=== PATIENT | male | born 1985 | race Caucasian/White ===

== ENCOUNTER 2017-05-28 18:05 | Emergency (ER) | payer MEDICAID ==
[2017-05-28 18:25] VITALS: BP 127/79
[2017-05-28] MEDS ORDERED: cephALEXin 250 MG CAPSULE PO STA (19:16)
--- NOTE | 2017-05-28 19:19 | ED Physician Documentation ---
PD HPI SKIN - Stated complaint Stated Complaint: BUMPS BEHIND EARS - Chief complaint Chief Complaint: Wound - History obtained from History obtained from: Patient - History of Present Illness Timing - onset: Other (He has cystic acne and has inflamed cysts behind both ears which he would like drained. No fevers.) Review of Systems Constitutional: reports: Reviewed and negative Eyes: reports: Reviewed and negative Nose: reports: Reviewed and negative PD PAST MEDICAL HISTORY - Past Medical History Past Medical History: No - Past Surgical History Past Surgical History: Yes - Present Medications Home Medications: Ambulatory Orders Medication Instructions Recorded Confirmed Cephalexin [Keflex] 500 mg PO QID #40 capsule 05/28/17 - Allergies Allergies/Adverse Reactions: Allergies Allergy/AdvReac Type Severity Reaction Status Date / Time Penicillins Allergy Severe Hives Verified 05/28/17 18:12 amoxicillin Allergy Unknown Verified 05/28/17 18:12 - Social History Does the pt smoke?: Yes Smoking Status: Current every day smoker Does the pt drink ETOH?: No Does the pt have substance abuse?: Yes Substance Use and Type: Marijuana - Immunizations Immunizations are current?: Yes Immunizations: TDAP >10years/unknown - POLST Patient has POLST: No PD ED PE NORMAL - Vitals Vital signs reviewed: Yes - General General: Alert and oriented X 3, No acute distress - HEENT HEENT: Other (There is a large infected sebaceous cyst behind the right ear and a smaller one behind the left ear) - Neck Neck: Supple, no meningeal sign, No bony TTP - Neuro Neuro: Alert and oriented X 3, Normal speech - Psych Psych: Normal mood, Normal affect Results - Vitals Vitals: Vital Signs - 24 hr 05/28/17 05/28/17 18:11 18:23 Temperature 36.6 C 36.8 C Heart Rate 86 85 Respiratory 15 24 Rate Blood Pressure 130/89 H 127/79 O2 Saturation 99 98 Oxygen O2 Source Room air Procedures - Abscess I&D (location) Left ear Preparation: Alcohol, Lidocaine 1% Incision: Incised with scalpel, Purulent drainage Other: Pt tolerated well, Dressing applied, Antibiotic prescribed Right Ear Preparation: Alcohol, Lidocaine 1% Incision: Incised with scalpel, Purulent drainage Other: Pt tolerated well, Dressing applied Departure - Departure Disposition: 01 Home, Self Care Clinical Impression: Sebaceous cyst of ear Condition: Good Record reviewed to determine appropriate education?: Yes Instructions: ED Abscess IandD Prescriptions: Cephalexin [Keflex] 500 mg PO QID #40 capsule Comments: Call your doctor to arrange a follow-up appointment, make the next available appointment. In the interim, return anytime if worse or if new symptoms develop.
[2017-05-28] MEDS ORDERED: cephALEXin 250 MG CAPSULE PO ONE (19:27)
== END 2017-05-28 19:24 | disposition home or self-care (01) ==
LOC: ED 18:05
DX: L72.3 Sebaceous cyst (principal)
CPT/HCPCS: 10060; 99283; A9270

== ENCOUNTER 2017-09-02 20:54 | Emergency (ER) | payer MEDICAID ==
[2017-09-02 21:03] VITALS: BP 131/72
[2017-09-02] MEDS ORDERED: PROPARACAINE 0.5% OPHTH DROPS 15 ML RIGHTEYE STA (21:05)
[2017-09-02] MEDS ORDERED: ERYTHROMYCIN OPHTH OINT 1 GM TUBE RIGHTEYE STA (21:11)
[2017-09-02] MEDS ORDERED: HYDROcod/ACET 5/325 Prepack 6 PO STA (21:11)
[2017-09-02] MEDS ORDERED: TETANUS/DIPHTHERIA/PERTUSSIS 0.5 ML SYRINGE IM ONE (21:11)
--- NOTE | 2017-09-02 21:16 | ED Physician Documentation ---
PD HPI OPHTHO - Stated complaint Stated Complaint: R EYE INJ - Chief complaint Chief Complaint: Heent - History obtained from History obtained from: Patient - History of Present Illness Timing - onset: Today (Working at home with bushes and scratched himself to the right eye, visual acuity is unaffected. He does not wear contacts.) Review of Systems Constitutional: denies: Fever, Chills Eyes: reports: Discharge, Irritation. denies: Loss of vision, Decreased vision , Photophobia Ears: denies: Loss of hearing, Ear pain PD PAST MEDICAL HISTORY - Past Surgical History Past Surgical History: Yes - Present Medications Home Medications: Ambulatory Orders Medication Instructions Recorded Confirmed No Known Home Medications [No 09/02/17 09/02/17 Known Home Medications] - Allergies Allergies/Adverse Reactions: Allergies Allergy/AdvReac Type Severity Reaction Status Date / Time Penicillins Allergy Severe Hives Verified 09/02/17 21:03 amoxicillin Allergy Unknown Verified 09/02/17 21:03 - Social History Does the pt smoke?: Yes Smoking Status: Current every day smoker Does the pt drink ETOH?: No Does the pt have substance abuse?: Yes - Immunizations Immunizations are current?: Yes Immunizations: TDAP >10years/unknown - POLST Patient has POLST: No PD ED PE NORMAL - Vitals Vital signs reviewed: Yes - General General: Alert and oriented X 3, No acute distress - HEENT HEENT: PERRL, EOMI, Other (On fluorescein examination there is a large shallow abrasion of the right cornea, inferolateral. Negative Steven sign.) - Neck Neck: Supple, no meningeal sign, No bony TTP - Neuro Neuro: Alert and oriented X 3, Normal speech - Psych Psych: Normal mood, Normal affect Results - Vitals Vitals: Vital Signs - 24 hr 09/02/17 21:01 Temperature 36.7 C Heart Rate 77 Respiratory 20 Rate Blood Pressure 131/72 H O2 Saturation 99 Oxygen O2 Source Room air Departure - Departure Disposition: Home, Self Care Clinical Impression: Corneal abrasion, right Qualifiers: Encounter type: initial encounter Qualified Code(s): S05.01XA - Injury of conjunctiva and corneal abrasion without foreign body, right eye, initial encounter Condition: Good Record reviewed to determine appropriate education?: Yes Instructions: ED Eye Injury Corneal Abrasion Follow-Up: Mario Mehta MD [Provider Admit Priv/Credential] - Within 3 Days Comments: Use the eye drops 5 times a day Your blood pressure was elevated today on check into the emergency department. This does not mean that you have hypertension, it is a common phenomenon to come to the emergency department and have elevated blood pressure. I recommend that you see your primary care physician within the week to have it rechecked when you are feeling better.
== END 2017-09-02 21:22 | disposition home or self-care (01) ==
LOC: ED 20:54
DX: S05.01XA Injury of conjunctiva and corneal abrasion without foreign body, right eye, initial encounter (principal); W22.8XXA Striking against or struck by other objects, initial encounter; Y93.H2 Activity, gardening and landscaping; Y92.009 Unspecified place in unspecified non-institutional (private) residence as the place of occurrence of the external cause; R03.0 Elevated blood-pressure reading, without diagnosis of hypertension; F17.200 Nicotine dependence, unspecified, uncomplicated; Z23 Encounter for immunization
CPT/HCPCS: 90471; 90715; 99283; J3490

== ENCOUNTER 2019-02-24 17:54 | Emergency (ER) | payer MEDICAID, OTHER ==
[2019-02-24] MEDS ORDERED: IBUPROFEN 600 MG TABLET PO STA (18:36)
[2019-02-24] MEDS ORDERED: BUPIVACAINE 0.25%-EPI 1:200000 PF 10 ML VIAL SUBQ ONE (18:42)
[2019-02-24] MEDS ORDERED: CLINDAMYCIN 150 MG CAPSULE PO STA (18:43)
[2019-02-24] MEDS ORDERED: BUPIVACAINE 0.25%-EPI 1:200000 PF 30 ML VIAL SUBQ STA (18:46)
[2019-02-24] MEDS ORDERED: BUPIVACAINE 0.25%-EPI 1:200000 PF 30 ML VIAL SUBQ ONE (19:00)
--- NOTE | 2019-02-24 19:16 | ED Physician Documentation ---
PD HPI HEENT - Stated complaint Stated Complaint: TOOTH PX - Chief complaint Chief Complaint: Heent - History obtained from History obtained from: Patient - History of Present Illness Timing - onset: Chronic, Other (worse 2 days ago) Timing - details: Gradual onset, Still present Severity Comments: severe Location: Tooth (right tooth #27) Improves: Nothing Worsens: Everything Associated symptoms: Facial swelling (right lower face and chin swelling that is moderate). No: Fever, Rhinorrhea, Trismus Similar symptoms before: Other (has severe dental decay that is diffuse) - Treatment prior to arrival Treatment prior to arrival: ibuprofen - Additional information Additional information: Hx of methamphetamine abuse previously Review of Systems Ten Systems: 10 systems reviewed and negative Constitutional: denies: Fever, Chills Throat: reports: Dental pain / toothache. denies: Sore throat GI: denies: Nausea, Vomiting Skin: reports: Other (swelling of Right lower face/chin) Neurologic: reports: Reviewed and negative Immunocompromised: reports: Reviewed and negative PD PAST MEDICAL HISTORY - Past Medical History Past Medical History: No Other Past Medical History: denies - Past Surgical History Past Surgical History: Yes - Present Medications Home Medications: Ambulatory Orders Medication Instructions Recorded Confirmed Ibuprofen [Motrin] 800 mg PO Q8H PRN #30 tablet 02/24/19 RX: Chlorhexidine Gluconate 15 ml MM TID 10 Days #1 mouthwash 02/24/19 RX: Clindamycin HCl [Clindamycin 300 mg PO Q6H #28 capsule 02/24/19 300MG CAP] - Allergies Allergies/Adverse Reactions: Allergies Allergy/AdvReac Type Severity Reaction Status Date / Time Penicillins Allergy Severe Hives Verified 09/02/17 21:03 amoxicillin Allergy Unknown Verified 09/02/17 21:03 - Social History Does the pt smoke?: Yes Smoking Status: Current every day smoker Does the pt drink ETOH?: No Does the pt have substance abuse?: Yes Substance Use and Type: Meth - Immunizations Immunizations are current?: No Immunizations: TDAP >10years/unknown - POLST Patient has POLST: No PD ED PE NORMAL - Vitals Vital signs reviewed: Yes - General General: Alert and oriented X 3, No acute distress, Well developed/nourished - HEENT HEENT: Atraumatic - Neck Neck: Supple, no meningeal sign, No JVD - Cardiac Cardiac: RRR - Respiratory Respiratory: No respiratory distress - Abdomen Abdomen: Non distended - Male Male : Deferred - Rectal Rectal: Deferred - Derm Derm: Warm and dry - Neuro Neuro: Alert and oriented X 3 Eye Opening: Spontaneous Motor: Obeys Commands Verbal: Oriented GCS Score: 15 - Psych Psych: Normal mood, Normal affect PD ED PE EXPANDED - HEENT HEENT: Pharynx normal, Dental decay, Dental TTP, Dental abscess (tooth #27 with surrounding swelling of gum line. Not including the submental area but including the chin on the right side with some redness.) - Derm Derm: Other (redness of R side of lower face and chin on side of dental abscess, not fluctuant.) Results - Vitals Vitals: Vital Signs - 24 hr 02/24/19 02/24/19 18:15 19:28 Temperature 37.4 C Heart Rate 86 66 Respiratory 16 16 Rate Blood Pressure 146/89 H 154/94 H O2 Saturation 100 99 Oxygen O2 Source Room air Procedures - Abscess I&D (location) Other right Preparation: Marcaine 0.25%, With epi (R mental block with 6cc of bupivcaine.) Incision: Incised with scalpel, Purulent drainage, Loculations broken Other: Pt tolerated well, Antibiotic prescribed PD MEDICAL DECISION MAKING - ED course Complexity details: re-evaluated patient, considered differential, d/w patient ED course: ddx - dental pain, dental abscess, ludwigs angina, facial cellulitis, pericoronitis 33 y/o M with dental pain for a few days but long hx of dental decay likely due to prior methamphetamine abuse. Pt without fever but has obvious tooth #27 decay with surrounding abscess and facial swelling. No drooling, no trismus. He does not have symptoms of Amari's angina. An I&D was performed succesffully. The pt had some post I&D bleeding which resolved with gauze packing. The pt was started on antibiotics - clindamycin as well as chlorahexidine mouth wash. He is to f/u with a dentist as soon as he can get an appt. Departure - Departure Disposition: 01 Home, Self Care Clinical Impression: Dental abscess Condition: Stable Record reviewed to determine appropriate education?: Yes Follow-Up: your, dentist [Other] - Within 1 week Prescriptions: RX: Chlorhexidine Gluconate 15 ml MM TID 10 Days #1 mouthwash RX: Clindamycin HCl [Clindamycin 300MG CAP] 300 mg PO Q6H #28 capsule Ibuprofen [Motrin] 800 mg PO Q8H PRN #30 tablet PRN Reason: PAIN &/OR FEVER Comments: Return to the ED if you develop any difficulty speaking, drooling, shortness of breath or fever. Discharge Date/Time: 02/24/19 19:28
[2019-02-24 19:34] VITALS: BP 154/94
== END 2019-02-24 19:28 | disposition home or self-care (01) ==
LOC: ED 17:54
DX: K04.7 Periapical abscess without sinus (principal); K02.9 Dental caries, unspecified; F17.200 Nicotine dependence, unspecified, uncomplicated
CPT/HCPCS: 41800; 99282; 99284; A9270

== ENCOUNTER 2019-03-02 07:57 | Emergency (ER) | payer OTHER ==
--- NOTE | 2019-03-02 08:11 | ED Physician Documentation ---
PD HPI CHEST PAIN - Stated complaint Stated Complaint: CHEST PX - Chief complaint Chief Complaint: Cardiac - History obtained from History obtained from: Patient - History of Present Illness Timing - onset: Yesterday Timing - onset during: Rest Timing - duration: Days (1) Timing - details: Gradual onset, Still present Quality: Sharp, Pain Location: Substernal, Right chest Radiation: Back Improved by: Nothing Associated symptoms: Cough. No: Shortness of air, Diaphoresis, Nausea, Vomiting, Feeling faint / dizzy, General Weakness, Palpitations Similar symptoms before: Has not had sx before Recently seen: Other - Additional information Additional information: 33-year-old male who has recently had a dental extraction for abscess tooth is on some clindamycin and ibuprofen. He has developed some acute right-sided chest pain and a burning sensation in his chest. This began last night and is persisted through the night. He is come to the emergency department today for evaluation. He has not had this symptoms previously Review of Systems Constitutional: denies: Fever Eyes: denies: Decreased vision Ears: denies: Loss of hearing Nose: denies: Rhinorrhea / runny nose, Congestion Throat: reports: Dental pain / toothache Cardiac: reports: Chest pain / pressure. denies: Palpitations, Pedal edema, Calf pain Respiratory: reports: Cough. denies: Dyspnea, Wheezing GI: denies: Abdominal Pain, Nausea, Vomiting : denies: Dysuria, Frequency PD PAST MEDICAL HISTORY - Past Surgical History Past Surgical History: Yes - Present Medications Home Medications: Ambulatory Orders Medication Instructions Recorded Confirmed Clindamycin HCl [Clindamycin 300MG 300 mg PO Q6H #28 capsule 02/24/19 03/02/19 CAP] Ibuprofen [Motrin] 800 mg PO Q8H PRN #30 tablet 02/24/19 03/02/19 Sucralfate [Carafate] 1 gm PO ACHS #60 tablet 03/02/19 - Allergies Allergies/Adverse Reactions: Allergies Allergy/AdvReac Type Severity Reaction Status Date / Time Penicillins Allergy Severe Hives Verified 03/02/19 08:07 amoxicillin Allergy Unknown Verified 03/02/19 08:07 - Social History Does the pt smoke?: Yes Smoking Status: Current every day smoker Does the pt drink ETOH?: No Does the pt have substance abuse?: Yes - Immunizations Immunizations are current?: No Immunizations: TDAP >10years/unknown - POLST Patient has POLST: No PD ED PE NORMAL - Vitals Vital signs reviewed: Yes (hypertensive mild ) - General General: Alert and oriented X 3, No acute distress, Well developed/nourished - HEENT HEENT: Atraumatic, PERRL, EOMI - Neck Neck: Supple, no meningeal sign, No bony TTP - Cardiac Cardiac: RRR, No murmur - Respiratory Respiratory: No respiratory distress, Clear bilaterally - Abdomen Abdomen: Normal bowel sounds, Soft, Non tender, Non distended, No organomegaly - Back Back: No CVA TTP, No spinal TTP - Derm Derm: Normal color, Warm and dry, No rash - Extremities Extremities: No deformity, No edema - Neuro Neuro: Alert and oriented X 3, physician compensation analyst 2-12 intact, No motor deficit, No sensory deficit, Normal speech Eye Opening: Spontaneous Motor: Obeys Commands Verbal: Oriented GCS Score: 15 - Psych Psych: Normal mood, Normal affect Results - Vitals Vitals: Vital Signs - 24 hr 03/02/19 03/02/19 08:05 09:15 Temperature 36.8 C 36.8 C Heart Rate 75 60 Respiratory 16 14 Rate Blood Pressure 141/91 H 142/94 H O2 Saturation 100 100 Oxygen O2 Source Room air - EKG (time done) 0801 Rate: Rate (enter#) Rhythm: NSR Ischemia: ST elevation c/w repol Compare to prior EKG: Old EKG unavailable Computer interpretation: Agree with computer - Labs Labs: Laboratory Tests 03/02/19 03/02/19 03/02/19 08:45 08:45 08:45 WBC 8.5 RBC 4.67 L Hgb 14.3 Hct 42.5 MCV 91.0 MCH 30.6 MCHC 33.6 RDW 13.5 Plt Count 306 MPV 10.5 Neut # (Auto) 5.8 Lymph # (Auto) 1.9 [place] # (Auto) 0.5 Eos # (Auto) 0.2 Baso # (Auto) 0.1 Absolute Nucleated RBC 0.00 Nucleated RBC % 0.0 Sodium 139 Potassium 4.3 Chloride 104 Carbon Dioxide 27 Anion Gap 8.0 BUN 12 Creatinine 0.6 Estimated GFR (MDRD) 155 Glucose 94 Calcium 8.8 Total Bilirubin 0.5 AST 18 ALT 19 Alkaline Phosphatase 40 L Troponin I < 0.04 Total Protein 6.7 Albumin 3.2 Globulin 3.5 Albumin/Globulin Ratio 0.9 L Lipase 43 - Rads (name of study) 1 view chest Radiology: Prelim report reviewed (Impression: 1. Possible mild airways disease such as RAD or viral syndrome. No consolidation. 2 Normal heart size.), EMP read indepedently, See rad report PD MEDICAL DECISION MAKING - ED course Complexity details: reviewed old records, reviewed results, re-evaluated patient, considered differential, d/w patient ED course: 33-year-old male has been taking some ibuprofen for bad teeth and he has developed chest pain of a burning nature in the central portion of his chest. He has improvement with this with the use of a GI cocktail consisting of viscous lidocaine and Mylanta. I suspect his chest pain is related and we will place the patient on some Carafate as well as Pepcid. I discussed these findings with the patient he will stop taking the ibuprofen and take Carafate and Pepcid for the next week. Departure - Departure Disposition: 01 Home, Self Care Clinical Impression: Gastritis Qualifiers: Gastritis type: unspecified gastritis Chronicity: acute Gastritis bleeding: without bleeding Qualified Code(s): K29.00 - Acute gastritis without bleeding Condition: Stable Instructions: ED PUD Vs Gastritis Follow-Up: [facility] [Provider Group] Prescriptions: Sucralfate [Carafate] 1 gm PO ACHS #60 tablet Comments: Today it appears the pain you are having in your chest is related to the use of ibuprofen. Stop the ibuprofen and take some Pepcid AC or omeprazole available [id number] and take the Carafate as prescribed. Forms: Activity restrictions
--- NOTE | 2019-03-02 08:49 | XRAY Report ---
Reason: cp Procedure Date: 03/02/2019 Accession Number: [id number] / [id number] Procedure: XR - Chest 1 View X-Ray CPT Code: 39156 FULL RESULT: EXAM: CHEST RADIOGRAPHY EXAM DATE: 03/02/2019 08:30 AM. CLINICAL HISTORY: Chest tightness x2 days. COMPARISON: None. TECHNIQUE: 1 view. FINDINGS: Lungs/Pleura: Mild bilateral bronchial wall thickening. No consolidation or vascular congestion. A probable 4 cm right apical bleb. No pneumothorax or pleural effusion. Mediastinum: Normal cardiomediastinal silhouette. Other: No acute fracture evident. IMPRESSION: 1. Possible mild airways disease such as RAD or viral syndrome. No consolidation. 2. Normal heart size. RADIA
[2019-03-02 08:53] LABS: BASOPHILS # (AUTO) 0.1 10^3/uL (0.0-0.1); BASOPHILS % (AUTO) 0.7 %; EOSINOPHILS # (AUTO) 0.2 10^3/uL (0.0-0.7); EOSINOPHILS % (AUTO) 2.4 %; HGB - HEMOGLOBIN 14.3 g/dL (14.0-18.0); LYMPHOCYTES # (AUTO) 1.9 10^3/uL (1.5-3.5); LYMPHOCYTES % (AUTO) 21.9 %; MEAN CORPUSCULAR HEMOGLOBIN 30.6 pg (27.0-31.0); MEAN CORPUSCULAR HGB CONC 33.6 g/dL (32.0-36.0); MEAN PLATELET VOLUME 10.5 fL (7.4-11.4); MONOCYTES # (AUTO) 0.5 10^3/uL (0.0-1.0); MONOCYTES % (AUTO) 6.3 %; NEUTROPHILS # (AUTO) 5.8 10^3/uL (1.5-6.6); NEUTROPHILS % (AUTO) 68.1 %; PLT - PLATELET COUNT 306 10^3/uL (130-450); RED BLOOD COUNT 4.67 10^6/uL (4.70-6.10); RED CELL DISTRIBUTION WIDTH 13.5 % (12.0-15.0); WHITE BLOOD COUNT 8.5 x10^3/uL (4.8-10.8)
[2019-03-02 09:05] LABS: ALBUMIN 3.2 g/dL (3.2-5.5); ALBUMIN/GLOBULIN RATIO 0.9 (1.0-2.2); BILIRUBIN,TOTAL 0.5 mg/dL (0.2-1.0); CALCIUM 8.8 mg/dL (8.5-10.3); CREATININE 0.6 mg/dL (0.6-1.2); TOTAL PROTEIN 6.7 g/dL (6.7-8.2)
[2019-03-02] MEDS ORDERED: LIDOCAINE VISCOUS 2% 15 ML UDC MM STA (09:43)
[2019-03-02] MEDS ORDERED: MAG HYDROX/AL HYDROX/SIMETH 30 ML UDC PO STA (09:43)
[2019-03-02] MEDS ORDERED: SUCRALFATE 1 GM/10 ML UDC PO STA (10:20)
[2019-03-02] MEDS ORDERED: FAMOTIDINE 20 MG TABLET PO STA (10:20)
[2019-03-02 10:31] VITALS: BP 126/64
== END 2019-03-02 10:30 | disposition home or self-care (01) ==
LOC: ED 07:57
DX: K29.00 Acute gastritis without bleeding (principal); Z98.818 Other dental procedure status; F17.200 Nicotine dependence, unspecified, uncomplicated
CPT/HCPCS: 36415; 71045; 80053; 83690; 84484; 85025; 93005; 99284; A9270

== ENCOUNTER 2019-04-28 04:10 | Emergency (ER) | payer OTHER ==
[2019-04-28 04:19] VITALS: BP 146/92
--- NOTE | 2019-04-28 04:27 | ED Physician Documentation ---
PD HPI HEENT - Stated complaint Stated Complaint: FACE SWELLING/PAIN - Chief complaint Chief Complaint: Heent - History obtained from History obtained from: Patient - History of Present Illness Timing - onset: How many days ago (1-2) Timing - duration: Days (1-2) Timing - details: Gradual onset, Still present Location: Tooth Worsens: Everything Associated symptoms: Swollen nodes, Facial swelling. No: Fever, Congestion, Unable to swallow Similar symptoms before: Diagnosis (has had dental infections, last one February 2019 and had tooth extracted after treatment from ER.) Review of Systems Constitutional: reports: Chills. denies: Fever Nose: denies: Rhinorrhea / runny nose, Congestion Throat: denies: Sore throat Respiratory: denies: Cough GI: denies: Nausea, Vomiting PD PAST MEDICAL HISTORY - Past Medical History Past Medical History: No - Past Surgical History Past Surgical History: Yes - Present Medications Home Medications: Ambulatory Orders Medication Instructions Recorded Confirmed Clindamycin HCl [Clindamycin 300MG 300 mg PO Q6H #28 capsule 02/24/19 03/02/19 CAP] Ibuprofen [Motrin] 800 mg PO Q8H PRN #30 tablet 02/24/19 03/02/19 Sucralfate [Carafate] 1 gm PO ACHS #60 tablet 03/02/19 Chlorhexidine Gluconate [Peridex] 5 ml MM BID #118 ml 04/28/19 Clindamycin HCl [Clindamycin 300MG 300 mg PO Q6H #28 capsule 04/28/19 CAP] Oxycodone HCl/Acetaminophen 1 each PO Q6H PRN #18 tablet 04/28/19 [Percocet 5-325 mg Tablet] - Allergies Allergies/Adverse Reactions: Allergies Allergy/AdvReac Type Severity Reaction Status Date / Time Penicillins Allergy Severe Hives Verified 03/02/19 08:07 amoxicillin Allergy Unknown Verified 03/02/19 08:07 - Social History Does the pt smoke?: Yes Smoking Status: Current every day smoker Does the pt drink ETOH?: No Does the pt have substance abuse?: Yes - Immunizations Immunizations are current?: No Immunizations: TDAP >10years/unknown - POLST Patient has POLST: No PD ED PE NORMAL - Vitals Vital signs reviewed: Yes - General General: Alert and oriented X 3, Well developed/nourished, Other (He appears uncomfortable and is holding the left mandible) - HEENT HEENT: No: Dentition benign (Significant dental caries. The left incisor shows significant decay with some swelling and tenderness along the gum. There is no fluctuance noted. The molars on both lower sides have been previously extracted. There is some mild left anterior adenopathy in the submandibular area.) - Neck Neck: Supple, no meningeal sign - Cardiac Cardiac: RRR, No murmur - Respiratory Respiratory: Clear bilaterally - Derm Derm: Normal color, Warm and dry - Neuro Neuro: Alert and oriented X 3, No motor deficit, Normal speech Results - Vitals Vitals: Vital Signs - 24 hr 04/28/19 04:16 Temperature 36.8 C Heart Rate 73 Respiratory 17 Rate Blood Pressure 146/92 H O2 Saturation 98 Oxygen O2 Source Room air PD MEDICAL DECISION MAKING - ED course Complexity details: reviewed old records, considered differential (Dental infection without fluctuant abscess. We will treat with antibiotics and pain medicine.), d/w patient Departure - Departure Disposition: 01 Home, Self Care Clinical Impression: Infected dental caries Condition: Stable Record reviewed to determine appropriate education?: Yes Instructions: ED Abscess Tooth Prescriptions: Chlorhexidine Gluconate [Peridex] 5 ml MM BID #118 ml Clindamycin HCl [Clindamycin 300MG CAP] 300 mg PO Q6H #28 capsule Oxycodone HCl/Acetaminophen [Percocet 5-325 mg Tablet] 1 each PO Q6H PRN #18 tablet PRN Reason: pain Comments: Stay well-hydrated. Use anti-inflammatories such as ibuprofen or naproxen 2-3 times a day. To that add Tylenol or Percocet if needed for pain. Chlorhexidine antiseptic mouth rinse twice daily 5 mL at a time swish it around the affected area and spit it out. Clindamycin antibiotic as directed for a week. Follow-up with dentist at their earliest available appointment for more definitive care of the tooth. Recheck if not improving well over the next couple of days.
[2019-04-28] MEDS ORDERED: CLINDAMYCIN 150 MG CAPSULE PO STA (04:32)
[2019-04-28] MEDS ORDERED: oxyCODONE/ACET 5/325 Prepack 4 PO STA (04:32)
[2019-04-28] MEDS ORDERED: ACETAMINOPHEN 325 MG TABLET PO STA (04:32)
== END 2019-04-28 04:49 | disposition home or self-care (01) ==
LOC: ED 04:10
DX: K04.7 Periapical abscess without sinus (principal); K02.9 Dental caries, unspecified; F17.200 Nicotine dependence, unspecified, uncomplicated
CPT/HCPCS: 99283; 99284; A9270

== ENCOUNTER 2020-05-07 10:35 | Emergency (ER) | payer OTHER ==
--- NOTE | 2020-05-07 11:39 | ED Physician Documentation ---
PD HPI OPHTHO - Stated complaint Stated Complaint: R EYE PX/REDNESS - Chief complaint Chief Complaint: Heent - History obtained from History obtained from: Patient - History of Present Illness Timing - onset: Yesterday Timing - duration: Days (1) Timing - details: Gradual onset (no noted abrupt FB nor symptoms. He was out doing a lot of yard work and weed wacking/brush clearing, and later in day noted onset of irritation, redness, swelling right eye. No FB feeling per se, but eye generally irritated.), Still present Location: Right. No: Both Quality / character: Itching, Burning Associated symptoms: Redness, Swelling, Tearing, Photophobia (mild), Decreased vision. No: Discharge, FB sensation, Loss of vision, Headache Contributing factors: Work related. No: Recent URI, FB (but feels he likely is reacting to something from the yard clearing he did yesterday.), Wears contacts Similar symptoms before: Has not had sx before Review of Systems Constitutional: denies: Fever Nose: reports: Rhinorrhea / runny nose (from allergies). denies: Congestion Throat: denies: Sore throat Respiratory: denies: Dyspnea, Cough Skin: denies: Rash PD PAST MEDICAL HISTORY - Past Medical History Past Medical History: No - Past Surgical History Past Surgical History: Yes - Present Medications Home Medications: Ambulatory Orders Medication Instructions Recorded Confirmed Clindamycin HCl [Clindamycin 300MG 300 mg PO Q6H #28 capsule 02/24/19 03/02/19 CAP] Ibuprofen [Motrin] 800 mg PO Q8H PRN #30 tablet 02/24/19 03/02/19 Sucralfate [Carafate] 1 gm PO ACHS #60 tablet 03/02/19 Chlorhexidine Gluconate [Peridex] 5 ml MM BID #118 ml 04/28/19 Clindamycin HCl [Clindamycin 300MG 300 mg PO Q6H #28 capsule 04/28/19 CAP] Oxycodone HCl/Acetaminophen 1 each PO Q6H PRN #18 tablet 04/28/19 [Percocet 5-325 mg Tablet] Ketotifen Fumarate 2 drops RIGHTEYE TID #1 bottle 05/07/20 Lazarus/Polymyx B Sulf/Dexameth 2 - 3 drops RIGHTEYE QID #1 bottle 05/07/20 [Hbbbff-Ylnjb-Rlwdfajc Eye Drop] - Allergies Allergies/Adverse Reactions: Allergies Allergy/AdvReac Type Severity Reaction Status Date / Time Penicillins Allergy Severe Hives Verified 05/07/20 10:52 amoxicillin Allergy Unknown Verified 05/07/20 10:52 - Social History Does the pt smoke?: Yes Smoking Status: Current every day smoker Does the pt drink ETOH?: No Does the pt have substance abuse?: Yes - Immunizations Immunizations are current?: No Immunizations: TDAP >10years/unknown - POLST Patient has POLST: No PD ED PE NORMAL - Vitals Vital signs reviewed: Yes - General General: Alert and oriented X 3, Well developed/nourished - HEENT HEENT: PERRL, EOMI PD ED PE EXPANDED - Eyes Eyes: Right eye, Injected conj/sclera (redness and hyperemia, with lower conjunctival swelling/edema), Anterior chambers clear, Normal fundi, Other (no light sensitivity here). No: Eyelid swelling, Exudate, Corneal abrasion, Fluorescein uptake Results - Vitals Vitals: Vital Signs - 24 hr 05/07/20 05/07/20 10:50 12:20 Temperature 36.6 C 36.3 C L Heart Rate 65 72 Respiratory 16 15 Rate Blood Pressure 149/85 H 138/84 H O2 Saturation 98 99 Oxygen O2 Source Room air Departure - Departure Disposition: 01 Home, Self Care Clinical Impression: Conjunctivitis Qualifiers: Conjunctivitis type: acute Acute conjunctivitis type: atopic Laterality: right Qualified Code(s): H10.11 - Acute atopic conjunctivitis, right eye Condition: Stable Record reviewed to determine appropriate education?: Yes Instructions: ED Conjunctivitis Nonspecific Prescriptions: Ketotifen Fumarate 2 drops RIGHTEYE TID #1 bottle Lazarus/Polymyx B Sulf/Dexameth [Xsossg-Jpcxq-Vymdynqz Eye Drop] 2 - 3 drops RIGHTEYE QID #1 bottle Comments: Both eyedrops in the right eye 3-4 times a day for the next several days until this is improved. It is hard to tell whether it is entirely inflammatory/allergic versus some infectious. We will treat for both. Recheck if not improved well over the next several days. Discharge Date/Time: 05/07/20 12:23
[2020-05-07 12:23] VITALS: BP 138/84
== END 2020-05-07 12:23 | disposition home or self-care (01) ==
LOC: ED 10:35
DX: H10.11 Acute atopic conjunctivitis, right eye (principal); F17.200 Nicotine dependence, unspecified, uncomplicated
CPT/HCPCS: 99282; 99283

== ENCOUNTER 2021-09-12 17:25 | Outpatient (CLI) | payer OTHER ==
--- NOTE | 2021-09-13 10:41 | XRAY Report ---
PROCEDURE: Chest 2 View X-Ray INDICATIONS: CHEST PX TECHNIQUE: 2 view(s) of the chest. COMPARISON: Chest x-ray 03/12/2021 FINDINGS: Surgical changes and devices: None. Lungs and pleura: No pleural effusions or pneumothorax. Lungs are clear. Mediastinum: Mediastinal contours are normal. Heart size is normal. Bones and chest wall: No suspicious bony abnormalities. Soft tissues appear unremarkable. IMPRESSION: No acute pulmonary process. Reviewed by: Nena Levy MD on 09/13/2021 10:40 AM [facility] Approved by: Nena Levy MD on 09/13/2021 10:40 AM [facility] Station ID: [id number]
== END 2021-09-12 23:59 | disposition home or self-care (01) ==
LOC: DI.N 17:25
PROVIDERS: ATTEND Nurse Practitioner
DX: R07.9 Chest pain, unspecified (principal)

== ENCOUNTER 2022-09-01 09:20 | Outpatient (CLI) | payer MEDICAID ==
[2022-09-01 18:28] LABS: BASOPHILS # (AUTO) 0.1 10^3/uL (0.0-0.1); BASOPHILS % (AUTO) 1.1 %; EOSINOPHILS # (AUTO) 0.3 10^3/uL (0.0-0.7); EOSINOPHILS % (AUTO) 4.7 %; HCT - HEMATOCRIT 43.8 % (42.0-52.0); HGB - HEMOGLOBIN 13.9 g/dL (14.0-18.0); LYMPHOCYTES # (AUTO) 1.9 10^3/uL (1.5-3.5); LYMPHOCYTES % (AUTO) 35.4 %; MEAN CORPUSCULAR HGB CONC 31.7 g/dL (32.0-36.0); MEAN CORPUSCULAR VOLUME 88.3 fL (80.0-94.0); MEAN PLATELET VOLUME 11.4 fL (7.4-11.4); MONOCYTES # (AUTO) 0.5 10^3/uL (0.0-1.0); MONOCYTES % (AUTO) 8.9 %; NEUTROPHILS # (AUTO) 2.7 10^3/uL (1.5-6.6); NEUTROPHILS % (AUTO) 49.7 %; PLT - PLATELET COUNT 333 10^3/uL (130-450); RED BLOOD COUNT 4.96 10^6/uL (4.70-6.10); RED CELL DISTRIBUTION WIDTH 13.3 % (12.0-15.0); WHITE BLOOD COUNT 5.5 x10^3/uL (4.8-10.8)
[2022-09-01 18:46] LABS: ALBUMIN 3.3 g/dL (3.2-5.5); ALBUMIN/GLOBULIN RATIO 0.9 (1.0-2.2); ALKALINE PHOSPHATASE 43 IU/L (42-121); ALT ALANINE AMINOTRANSFERASE 21 IU/L (10-60); AST ASPARTATE AMINOTRANSFERASE 20 IU/L (10-42); BILIRUBIN,TOTAL 1.5 mg/dL (0.2-1.0); BUN - BLOOD UREA NITROGEN 14 mg/dL (6-20); CALCIUM 8.9 mg/dL (8.5-10.3); CARBON DIOXIDE - CO2 31 mmol/L (21-32); CHLORIDE 102 mmol/L (101-111); CHOLESTEROL 212 mg/dL; CREATININE 0.7 mg/dL (0.6-1.2); GFR - MDRD 128 (>89); GLUCOSE 94 mg/dL (70-100); HDL CHOLESTEROL 70 mg/dL; LDL CHOLESTEROL,CALCULATED 132 mg/dL; LDL/HDL RATIO 1.9 (<3.6); POTASSIUM 4.6 mmol/L (3.5-5.0); SODIUM 138 mmol/L (135-145); TOTAL PROTEIN 6.9 g/dL (6.7-8.2); TRIGLYCERIDES 51 mg/dL; VLDL CHOLESTEROL 10 mg/dL
== END 2022-09-01 09:21 | disposition home or self-care (01) ==
LOC: LAB.N 09:20
PROVIDERS: ATTEND Nurse Practitioner
DX: R53.83 Other fatigue (principal); Z13.220 Encounter for screening for lipoid disorders
CPT/HCPCS: 36415; 80053; 80061; 83721; 85025

== ENCOUNTER 2022-10-30 09:24 | Day surgery (SDC) | payer MEDICAID ==
[2022-10-30] MEDS ORDERED: LACTATED RINGERS 1,000 ML IV ONE ×2 (09:26→11:38)
--- NOTE | 2022-10-30 10:57 | ANESTHESIA ---
Pre-Anesthesia VS, & Labs - Diagnosis rectal bleeding, hemorrhoids - Procedure colonoscopy, hemorrhoid banding Vital Signs: Temp Pulse Resp BP Pulse Ox O2 Flow Rate 36.6 C 57 L 16 132/76 H 100 0 10/30/22 09:38 10/30/22 09:38 10/30/22 09:38 10/30/22 09:38 10/30/22 09:38 10/30/22 09:38 Height: 6 ft Weight (kg): 80 kg Body Mass Index: 23.9 BMI Classification: Normal - NPO >8 hours Home Medications and Allergies Home Medications: Ambulatory Orders No Known Home Medications 10/29/22 No Known Home Medications 10/29/22 Allergies/Adverse Reactions: Allergies Allergy/AdvReac Type Severity Reaction Status Date / Time Penicillins Allergy Severe Hives Verified 10/29/22 13:06 amoxicillin Allergy Unknown Verified 10/29/22 13:06 Anes History & Medical History - Anesthetic History Anesthesia Complications: reports: No previous complications - Medical History Cardiovascular: reports: None Pulmonary: reports: None Gastrointestinal: reports: Hemorrhoids Urinary: reports: None Neuro: reports: None Musculoskeletal: reports: Chronic back pain Endocrine/Autoimmune: reports: None Blood Disorders: reports: None Skin: reports: None Smoking Status: Former smoker (quit 2.5 years ago) Psychosocial: reports: Cannabis (daily use) History of Cancer?: No - Surgical History General: reports: Other (pyloroplasty and hernia repair) Exam General: Alert, Oriented x3, Cooperative, No acute distress Dental: Other (edentulous) Mouth Openin Fingerbreadth Neck Mobility: Normal Mallampati classification: I Thyromental Distance: 4-6 cm Mental/Cognitive Status: Alert/Oriented X3, Normal for patient Plan Anesthesia Type: General, Total IV Consent for Procedure(s) Verified and Reviewed: Yes Code Status: Attempt Resuscitation ASA classification: 2-Mild systemic disease Is this case an emergency?: No
[2022-10-30] MEDS ORDERED: MIDAZOLAM 2 MG/2 ML VIAL ONE (11:09)
[2022-10-30] MEDS ORDERED: PROPOFOL 500 MG/50 ML 500 MG/50 ML VIAL ONE (11:10)
[2022-10-30] MEDS ORDERED: GLYCOPYRROLATE 1 MG/5 ML VIAL ONE (11:19)
--- NOTE | 2022-10-30 12:01 | ANESTHESIA POST OP EVALUATION ---
Anesthesia Post Eval - Post Anesthesia Eval Vitals: Last Vital Signs Temp 36.0 C L 10/30/22 11:40 Pulse 81 10/30/22 11:40 Resp 16 10/30/22 11:40 BP 127/88 H 10/30/22 11:40 Pulse Ox 99 10/30/22 11:40 O2 Flow Rate 0 10/30/22 09:38 CV Function Including HR & BP: Stable Pain Control: Satisfactory Nausea & Vomiting: Negative Mental Status: Baseline Respiratory Status: Airway Patent Hydration Status: Satisfactory Anesthesia Complications: None
[2022-10-30 12:52] VITALS: BP 143/94
== END 2022-10-30 09:25 | disposition home or self-care (01) ==
LOC: SDS 09:24
PROVIDERS: ATTEND Surgery
DX: K62.5 Hemorrhage of anus and rectum (principal); K64.8 Other hemorrhoids; Z87.891 Personal history of nicotine dependence
CPT/HCPCS: 45378; 46221; J7120

== ENCOUNTER 2022-12-03 17:11 | Emergency (ER) | payer MEDICAID ==
[2022-12-03 17:19] VITALS: BP 133/76
--- NOTE | 2022-12-03 17:27 | ED Physician Documentation ---
PD HPI BACK PAIN - Stated complaint Stated Complaint: BACK PAIN - Chief complaint Chief Complaint: Back Pain - History obtained from History obtained from: Patient - Additional information Additional information: He has chronic back pain. Has been in physical therapy was helpful. 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 Pain is much worse with bending or twisting. There was no fall or specific injury otherwise. He denies weakness, numbness, tingling, saddle anesthesia, fevers, IV drug use, bowel or bladder incontinence. He tried ibuprofen and Flexeril at home which were not effective. PD PAST MEDICAL HISTORY - Past Medical History Past Medical History: Yes Cardiovascular: None Respiratory: None Neuro: None Endocrine/Autoimmune: None GI: Hemorrhoids : None HEENT: None Psych: Bipolar disorder Musculoskeletal: Chronic back pain Derm: None - Past Surgical History Past Surgical History: Yes - Present Medications Home Medications: Ambulatory Orders Medication Instructions Recorded Confirmed HYDROcod/ACETAM 5/325 [Jackson 5/325] 1 - 2 tab PO Q6H PRN #15 tablet 12/03/22 - Allergies Allergies/Adverse Reactions: Allergies Allergy/AdvReac Type Severity Reaction Status Date / Time Penicillins Allergy Severe Hives Verified 12/03/22 17:16 amoxicillin Allergy Unknown Verified 12/03/22 17:16 - Social History Does the pt smoke?: No Smoking Status: Former smoker Does the pt drink ETOH?: No Does the pt have substance abuse?: Yes Substance Use and Type: Marijuana - Immunizations Immunizations are current?: Yes Immunizations: TDAP >10years/unknown - POLST Patient has POLST: No PD ED PE NORMAL - Vitals Vital signs reviewed: Yes - General General: Alert and oriented X 3, Other (Winces with motion but comfortable at rest) - Abdomen Abdomen: Non tender - Back Back: No spinal TTP - Extremities Extremities: Other (The patient has equal and normal Achilles and patellar reflexes bilaterally. Normal sensation in all areas of the legs. Patient denies saddle anesthesia. Normal strength in flexion-extension at the ankles, knees, and flexion of the hips.) - Neuro Neuro: Alert and oriented X 3, Normal speech Results - Vitals Vitals: Vital Signs - 24 hr 12/03/22 17:16 Temperature 37.2 C Heart Rate 83 Respiratory 16 Rate Blood Pressure 133/76 H O2 Saturation 99 Oxygen O2 Source Room air PD Medical Decision Making - ED course ED course: This patient has seemingly uncomplicated musculoskeletal back pain. The patient has no "red flags." Specifically denies IV drug use, fevers, incontinence, saddle anesthesia. Spinal epidural abscess was considered, given that the patient has no fever, is not diabetic, has no spinal tenderness, does not use IV drugs, and has no bilateral neurologic symptoms, the diagnosis of spinal epidural abscess is considered exceedingly unlikely. Departure - Departure Disposition: 01 Home, Self Care Clinical Impression: Back pain Qualifiers: Back pain location: low back pain Chronicity: chronic Back pain laterality: bilateral Sciatica presence: without sciatica Qualified Code(s): M54.50 - Low back pain, unspecified Condition: Good Record reviewed to determine appropriate education?: Yes Instructions: ED Low Back Pain Injury Prescriptions: HYDROcod/ACETAM 5/325 [Jackson 5/325] 1 - 2 tab PO Q6H PRN #15 tablet PRN Reason: Pain Comments: I sent your prescriptions electronically to [facility] in [place]. Call your doctor to arrange a follow-up appointment, make the next available appointment. In the interim, return anytime if worse or if new symptoms develop. You can continue taking ibuprofen along with the medication I am prescribing you. I am prescribing a short course of narcotic pain medication for you. These are potentially dangerous and addictive medications that should be used carefully. These medications may constipate you. Take an bhvk-qgf-bmflxyq stool softener (docusate) twice daily with plenty of water while taking these medications. If you go 24 hours without a bowel movement, take nlqb-[id number] miralax, per package instructions. Do not drink or drive while taking these medications. If you received narcotic or sedating medications while in the emergency department, do not drive for 24 hours. Store this medication in a safe, secure place and out of reach of children. It is a violation of federal law to give or sell this medication to another person or to use in a manner other than prescribed. The ED will not refill narcotic prescriptions, including prescriptions lost or stolen. To dispose of unwanted medications: 1. [facility] at [address] in [place] has a medication drop box. They accept prescription medications (in pill form) Saturday through Saturday 9:00 a.m. to 5:00 p.m. 2. The [facility] accepts prescription medications (in pill form only) for disposal year round. Call for more information. 3. Contact the [facility] for the next [facility] sponsored prescription drug collection event. , [phone], or [phone]; Note that many narcotic pain relievers also contain Tylenol/acetaminophen. Please ensure that your total dose of acetaminophen from all sources does not exceed 3 g (3000 mg) per day. Forms: Activity restrictions
== END 2022-12-03 17:35 | disposition home or self-care (01) ==
LOC: ED 17:11
DX: M54.50 Low back pain, unspecified (principal)
CPT/HCPCS: 99282; 99283

== ENCOUNTER 2022-12-05 09:41 | Outpatient (CLI) | payer MEDICAID ==
--- NOTE | 2022-12-05 11:10 | XRAY Report ---
PROCEDURE: Lumbar Spine 2 View INDICATIONS: LOW BACK PAIN, CHRONIC TECHNIQUE: 2 views of the lumbar spine were acquired. COMPARISON: None. FINDINGS: Bones: 5 ytk-cim-zlzrygf vertebrae are present. Unremarkable alignment. No vertebral body compressi on fractures. Lumbar disc heights appear maintained. Soft tissues: Overlying bowel gas pattern is normal. No suspicious soft tissue calcifications. IMPRESSION: No vertebral body fracture visualized. No substantial degenerative changes visualized radiographicall y. If symptoms persist, follow-up radiographs and/or CT or MRI may be helpful for further evaluation. Reviewed by: Pedro Gonzalez MD on 12/05/2022 11:08 AM PDT Approved by: Pedro Gonzalez MD on 12/05/2022 11:08 AM PDT Station ID: [id number]
== END 2022-12-05 09:42 | disposition home or self-care (01) ==
LOC: DI 09:41
PROVIDERS: ATTEND Physician Assistant Medical
DX: M54.59 Other low back pain (principal)

== ENCOUNTER 2023-01-08 19:03 | Emergency (ER) | payer MEDICAID ==
[2023-01-08] MEDS ORDERED: PROPARACAINE 0.5% OPHTH DROPS 15 ML EACHEYE STA (19:24)
[2023-01-08] MEDS ORDERED: ERYTHROMYCIN OPHTH OINT 1 GM TUBE LEFTEYE STA (20:10)
--- NOTE | 2023-01-08 20:14 | ED Physician Documentation ---
PD HPI OPHTHO - Stated complaint Stated Complaint: EYE INJURY - Chief complaint Chief Complaint: Heent - History obtained from History obtained from: Patient - History of Present Illness Location: Left Quality / character: Aching, Sharp Associated symptoms: Redness, Tearing, Photophobia. No: Swelling, Discharge, Matting, FB sensation, Double vision, Decreased vision, Loss of vision, Headache Contributing factors: Blunt trauma - Additional information Additional information: 37-year-old male presents with left eye irritation after getting struck by a stick earlier today. This happened Around 11 AM while at work. A branch fell from above him and swiped across the front of his left eye. Since then he has had some light sensitivity as well as watery tearing, no purulent drainage, no vision changes. He does wear glasses, no contacts. He has had a corneal abrasion in the right eye felt somewhat similar though this is lower than the prior injury. He has not attempted any treatment today. Review of Systems Constitutional: reports: Reviewed and negative, Other (10 point review of systems completed and negative except as described in HPI) PD PAST MEDICAL HISTORY - Past Medical History Past Medical History: Yes Cardiovascular: None Respiratory: None Neuro: None Endocrine/Autoimmune: None GI: Hemorrhoids : None HEENT: None Psych: Bipolar disorder Musculoskeletal: Chronic back pain Derm: None - Past Surgical History Past Surgical History: Yes - Present Medications Home Medications: Ambulatory Orders Medication Instructions Recorded Confirmed HYDROcod/ACETAM 5/325 [[place] 5/325] 1 - 2 tab PO Q6H PRN #15 tablet 12/03/22 Erythromycin Ophth Oint (3.5) 1 applic EACHEYE QID 5 Days #3.5 gm 01/08/23 [Ilotycin Ophth Oint (3.5)] - Allergies Allergies/Adverse Reactions: Allergies Allergy/AdvReac Type Severity Reaction Status Date / Time Penicillins Allergy Severe Hives Verified 01/08/23 19:21 amoxicillin Allergy Unknown Verified 01/08/23 19:21 - Social History Does the pt smoke?: No Smoking Status: Former smoker Does the pt drink ETOH?: No Does the pt have substance abuse?: Yes - Immunizations Immunizations are current?: Yes Immunizations: TDAP >10years/unknown - POLST Patient has POLST: No PD ED PE NORMAL - Vitals Vital signs reviewed: Yes - General General: Alert and oriented X 3, No acute distress, Well developed/nourished - HEENT HEENT: PERRL, EOMI, Other (Minor abrasions or laceration at approximately 4 to 5 o'clock position of left cornea. Globe is intact. No other abrasions or lacerations noted. No lid injury.) - Cardiac Cardiac: RRR, No murmur - Respiratory Respiratory: No respiratory distress, Clear bilaterally Results - Vitals Vitals: Vital Signs - 24 hr 01/08/23 19:19 Temperature 36.5 C Heart Rate 67 Respiratory 16 Rate Blood Pressure 137/79 H O2 Saturation 99 Oxygen O2 Source Room air PD Medical Decision Making - ED course Complexity details: considered differential, d/w patient ED course: 37-year-old male presented with left eye injury as described in HPI. He presents with left eye irritation and tearing as well as light sensitivity. The patient was given proparacaine and fluorescein stain reveals a linear abrasion or laceration of the left cornea. Globe is intact. No other injuries, No foreign body noted Patient has no acute vision changes and I believe is safe for dismissal home with treatment for left corneal injury. He was given first dose of erythromycin here and advised to continue erythromycin 4 times a day for the next 3 to 5 days until symptoms have resolved. He can take ibuprofen and Tylenol for pain. He was advised that he can use a patch oor utilize sunglasses if he needs to be outside as the sun/light may be bothersome. He was instructed on return precautions and Anticipated improvement in the next 1 to 2 days. If at any point time symptoms were to worsen or to you or to have Change in vision, purulent drainage, swelling or other new concerns he was advised to return to the ER or see an seafood specialist. Departure - Departure Disposition: 01 Home, Self Care Clinical Impression: Corneal laceration of left eye Qualifiers: Encounter type: initial encounter Qualified Code(s): S05.32XA - Ocular laceration without prolapse or loss of intraocular tissue, left eye, initial encounter Condition: Good Instructions: ED Eye Injury Corneal Abrasion Prescriptions: Erythromycin Ophth Oint (3.5) [Ilotycin Ophth Oint (3.5)] 1 applic EACHEYE QID 5 Days #3.5 gm Comments: Please cover your eye or wear sunglasses for comfort and you can take ibuprofen and Tylenol for pain. Use the eye ointment as prescribed. You should have impr ovement in the next 1 to 2 days. If you have worsening symptoms such as increased pain, purulent eye drainage, change in vision or other new concerns, please return to the ER or see an eye doctor.
[2023-01-08 20:47] VITALS: BP 139/96
== END 2023-01-08 20:45 | disposition home or self-care (01) ==
LOC: ED 19:03
DX: S05.32XA Ocular laceration without prolapse or loss of intraocular tissue, left eye, initial encounter (principal); W20.8XXA Other cause of strike by thrown, projected or falling object, initial encounter; Y99.0 Civilian activity done for income or pay; Z87.891 Personal history of nicotine dependence
CPT/HCPCS: 99282; 99283; J3490

== ENCOUNTER 2023-04-09 16:31 | Emergency (ER) | payer MEDICAID ==
[2023-04-09] MEDS ORDERED: SODIUM CHLORIDE 0.9% 1,000 ML IV STA (17:49)
[2023-04-09] MEDS ORDERED: DROPERIDOL 5 MG/2 ML VIAL IVP STA (17:49)
[2023-04-09] MEDS ORDERED: KETOROLAC 15 MG/ML VIAL IVP STA (17:49)
--- NOTE | 2023-04-09 17:50 | ED Physician Documentation ---
PD HPI ABD PAIN - Stated complaint Stated Complaint: VOMIT - Chief complaint Chief Complaint: Abd Pain - History obtained from History obtained from: Patient - Additional information Additional information: 37-year-old gentleman who had a congenital hernia repair and other abdominal surgery which I presume is pyloric stenosis based on his description and location of the scar presents with 4 days of vomiting and central abdominal pain. He did move his bowels once after this started. This is never happened before. He is a daily cannabis user. He did have a colonoscopy recently because of hemorrhoidal bleeding which per him was normal. He denies fevers. No sick contacts. PD PAST MEDICAL HISTORY - Past Medical History Cardiovascular: None Respiratory: None Neuro: None Endocrine/Autoimmune: None GI: Hemorrhoids : None HEENT: None Psych: Bipolar disorder Musculoskeletal: Chronic back pain Derm: None - Past Surgical History Past Surgical History: Yes - Present Medications Home Medications: Ambulatory Orders Medication Instructions Recorded Confirmed Omeprazole 40 mg PO DAILY #30 cap 04/09/23 Ondansetron Odt [Zofran] 4 mg TL Q6H PRN #10 tablet 04/09/23 - Allergies Allergies/Adverse Reactions: Allergies Allergy/AdvReac Type Severity Reaction Status Date / Time Penicillins Allergy Severe Hives Verified 04/09/23 16:35 amoxicillin Allergy Unknown Verified 04/09/23 16:35 - Social History Does the pt smoke?: No Smoking Status: Former smoker Does the pt drink ETOH?: No Does the pt have substance abuse?: Yes - Immunizations Immunizations are current?: Yes Immunizations: TDAP >10years/unknown - POLST Patient has POLST: No PD ED PE NORMAL - Vitals Vital signs reviewed: Yes - General General: Alert and oriented X 3, No acute distress - Cardiac Cardiac: RRR, No murmur - Respiratory Respiratory: No respiratory distress - Abdomen Abdomen: Normal bowel sounds, Soft, Other (Very mild epigastric tenderness. No surgical signs.) - Neuro Neuro: Alert and oriented X 3 Results - Vitals Vitals: Vital Signs - 24 hr 04/09/23 04/09/23 04/09/23 16:35 18:37 19:10 Temperature 36.5 C Heart Rate 90 79 78 Respiratory 16 16 16 Rate Blood Pressure 136/90 H 130/89 H 127/95 H O2 Saturation 98 98 97 Oxygen O2 Source Room air - Labs Labs: Laboratory Tests 04/09/23 04/09/23 17:52 17:52 WBC 9.7 RBC 5.67 Hgb 16.4 Hct 48.2 MCV 85.0 MCH 28.9 MCHC 34.0 RDW 12.6 Plt Count 371 MPV 10.7 Neut # (Auto) 7.0 H Lymph # (Auto) 1.7 Stearns # (Auto) 0.9 Eos # (Auto) 0.0 Baso # (Auto) 0.0 Absolute Nucleated RBC 0.00 Nucleated RBC % 0.0 Sodium 136 Potassium 3.8 Chloride 95 L Carbon Dioxide 33 H Anion Gap 8.0 BUN 19 Creatinine 0.8 Estimated GFR (MDRD) 109 Glucose 112 H Calcium 9.7 Total Bilirubin 1.6 H AST 13 ALT 14 Alkaline Phosphatase 48 Total Protein 7.4 Albumin 4.1 Globulin 3.3 Albumin/Globulin Ratio 1.2 Lipase 14 PD Medical Decision Making - ED course ED course: 37-year-old gentleman presents with 4 days of abdominal pain and vomiting. After administration of Toradol and droperidol IV was feeling much better. Labs show mild dehydration but otherwise unremarkable. On reevaluation at 7:30 PM he was nontender and requested discharge. I had originally ordered a CT but he declined wanting to go home. Departure - Departure Disposition: 01 Home, Self Care Clinical Impression: Abdominal pain Qualifiers: Abdominal location: generalized Qualified Code(s): R10.84 - Generalized abdominal pain Vomiting Qualifiers: Vomiting type: unspecified Nausea presence: with nausea Qualified Code(s): R11.2 - Nausea with vomiting, unspecified Condition: Good Record reviewed to determine appropriate education?: Yes Instructions: ED Abdominal Pain Unkn Cause Male Prescriptions: Omeprazole 40 mg PO DAILY #30 cap Ondansetron Odt [Zofran] 4 mg TL Q6H PRN #10 tablet PRN Reason: Nausea / Vomiting Comments: I sent a prescription for nausea medicine and stomach acid medicine to [facility] in [place]. Return if you worsen. Follow-up with your doctor, next available appointment. Forms: PCP List
[2023-04-09 18:07] LABS: BASOPHILS % (AUTO) 0.4 %; EOSINOPHILS % (AUTO) 0.2 %; HCT - HEMATOCRIT 48.2 % (42.0-52.0); HGB - HEMOGLOBIN 16.4 g/dL (14.0-18.0); LYMPHOCYTES # (AUTO) 1.7 10^3/uL (1.5-3.5); LYMPHOCYTES % (AUTO) 17.5 %; MEAN CORPUSCULAR HEMOGLOBIN 28.9 pg (27.0-31.0); MEAN PLATELET VOLUME 10.7 fL (7.4-11.4); MONOCYTES # (AUTO) 0.9 10^3/uL (0.0-1.0); MONOCYTES % (AUTO) 9.4 %; NEUTROPHILS % (AUTO) 72.2 %; PLT - PLATELET COUNT 371 10^3/uL (130-450); RED BLOOD COUNT 5.67 10^6/uL (4.70-6.10); RED CELL DISTRIBUTION WIDTH 12.6 % (12.0-15.0); WHITE BLOOD COUNT 9.7 x10^3/uL (4.8-10.8)
[2023-04-09 18:21] LABS: ALBUMIN 4.1 g/dL (3.2-5.5); ALBUMIN/GLOBULIN RATIO 1.2 (1.0-2.2); BILIRUBIN,TOTAL 1.6 mg/dL (0.2-1.0); CALCIUM 9.7 mg/dL (8.5-10.3); CREATININE 0.8 mg/dL (0.6-1.3); POTASSIUM 3.8 mmol/L (3.5-4.5); TOTAL PROTEIN 7.4 g/dL (6.4-8.9)
[2023-04-09] MEDS ORDERED: ONDANSETRON ODT 4 MG Prepack 2 TL STA (19:32)
[2023-04-09] MEDS ORDERED: ONDANSETRON ODT 4 MG TABLET TL STA (19:39)
[2023-04-09 20:05] VITALS: BP 137/79; O2SAT 98
== END 2023-04-09 20:04 | disposition home or self-care (01) ==
LOC: ED 16:31
DX: R10.84 Generalized abdominal pain (principal); R11.10 Vomiting, unspecified; Z87.891 Personal history of nicotine dependence
CPT/HCPCS: 36415; 80053; 83690; 85025; 96374; 96375; 99283